=== PATIENT | female | born 1995 | race Caucasian/White ===

== ENCOUNTER 2024-07-14 19:00 | Inpatient (IN) | payer OTHER ==
[~2024-07-14 19:00] MED LIST: Bupivacaine 0.25% HCL 30 ML VIAL ONE; Bupivacaine HCl 0.5%/Epinephrine 1:200,000/PF 30 ml Vial ONE
[2024-07-14] MEDS ORDERED: Lidocaine 1% (PF) 30 ML VIAL SC PRN (19:54)
[2024-07-14] MEDS ORDERED: HYDROcodone/Acetaminophen 5/325 mg Tablet PO PRN ×2 (19:54)
[2024-07-14] MEDS ORDERED: hydrALAZINE 20 MG/ML VIAL SLOW IVP PRN (19:54)
[2024-07-14] MEDS ORDERED: Ondansetron PF 4 MG/2 ML Vial IVP PRN (19:54)
[2024-07-14] MEDS ORDERED: Tranexamic Acid 1,000 MG/10 ML VIAL IVP PRN (19:54)
[2024-07-14] MEDS ORDERED: Promethazine HCl 25 MG/ML VIAL IM PRN (19:54)
[2024-07-14] MEDS ORDERED: fentaNYL 50 mcg/mL 1 mL Vial SLOW IVP PRN (19:54)
[2024-07-14] MEDS ORDERED: Zolpidem Tartrate 5 MG TAB PO PRN (19:54)
[2024-07-14] MEDS ORDERED: Misoprostol 100 MCG TAB VAG SCH (20:00)
[2024-07-14 21:06] VITALS: BMI 41.1
[2024-07-14 22:05] LABS: Hematocrit 35.6 % (34.9-44.5); Hemoglobin 11.1 g/dL (12.0-15.5); Mean Corpuscular HGB CONC 31.2 g/dL (32.0-36.0); Mean Corpuscular Hemoglobin 25.2 pg (27.0-33.0); Mean Corpuscular Volume 80.7 fL (81.6-98.3); Mean Platelet Volume 10.3 fL (7.4-10.4); Platelet Count 327 10x3/uL (150-450); RBC Distribution Width 15.3 % (11.5-14.5); Red Blood Cell (RBC) Count 4.41 10x6/uL (3.90-5.03); White Blood Cell (WBC) Count 14.6 10x3/uL (3.5-10.5)
[2024-07-14] MEDS: Misoprostol 100 MCG TAB VAG SCH (22:19)
[2024-07-14 22:32] LABS: HBsAg Index 0.18 S/CO (0-0.99); Hep B Surf Ag - L&D Non-Reactive S/CO (NonReactive); Syphilis Antibody Nonreactive (Nonreactive); Syphilis Antibody Index 0.04 S/CO (<1.00 Non-Reactive)
[2024-07-15] MEDS: Oxytocin 30 units/NS 500 ML 500 ML IV SCH ×2 (02:01→22:00)
[2024-07-15] MEDS ORDERED: Promethazine HCl 25 MG/ML VIAL IM PRN (16:53)
[2024-07-15] MEDS ORDERED: Acetaminophen 325 MG TAB PO PRN (16:53)
[2024-07-15] MEDS ORDERED: ePHEDrine Sulfate 50 MG/10 ML VIAL SLOW IVP PRN (16:53)
[2024-07-15] MEDS ORDERED: Naloxone HCl 0.4 mg/ml Vial IVP PRN ×2 (16:53)
[2024-07-15] MEDS ORDERED: Moisturizing Cream (Eucerin) 113 GM JAR TOP PRN (16:53)
[2024-07-15] MEDS ORDERED: Lactated Ringer's 500 ML IV PRN (16:53)
[2024-07-15] MEDS ORDERED: diphenhydrAMINE 50 MG/ML VIAL IVP PRN (16:53)
[2024-07-15] MEDS ORDERED: Communication Order-Pharmacy FS SCH (17:00)
[2024-07-15] MEDS ORDERED: fentaNYL 2 mcg/Ropivacaine 0.2% Epidural 100 ML CADD EPIDURAL SCH (17:00)
[2024-07-15] MEDS: Ondansetron PF 4 MG/2 ML Vial IVP PRN (18:58)
[2024-07-15] MEDS: Lactated Ringer's 1,000 ML IV SCH (19:26)
[2024-07-15] MEDS: fentaNYL/Ropivacaine Epidural 100 ML ONE (19:28)
[2024-07-15] MEDS: Misoprostol 200 MCG TAB PR PRN (21:44)
[2024-07-15] MEDS: Ibuprofen 800 MG TAB PO PRN (22:00)
[2024-07-15] MEDS: Methylergonovine 0.2 MG/ML VIAL IM PRN (23:02)
[2024-07-16] MEDS ORDERED: HYDROcodone/Acetaminophen 5/325 mg Tablet PO PRN ×2 (00:43)
[2024-07-16] MEDS ORDERED: Methylergonovine 0.2 MG/ML VIAL IM PRN (00:43)
[2024-07-16] MEDS ORDERED: Benzocaine-Menthol 82.5 ML CAN TOP PRN (00:43)
[2024-07-16] MEDS ORDERED: Lanolin Ointment 7 GM TUBE TOP PRN (00:43)
[2024-07-16] MEDS ORDERED: Milk Of Magnesia 30 ML UDCUP PO PRN (00:43)
[2024-07-16] MEDS ORDERED: Zolpidem Tartrate 5 MG TAB PO PRN (00:43)
[2024-07-16] MEDS ORDERED: Bisacodyl 10 MG SUPP PR PRN (00:43)
[2024-07-16] MEDS ORDERED: Misoprostol 200 MCG TAB VAG PRN (00:43)
[2024-07-16] MEDS ORDERED: hydrALAZINE 20 MG/ML VIAL SLOW IVP PRN (00:43)
[2024-07-16] MEDS ORDERED: Ondansetron PF 4 MG/2 ML Vial IVP PRN (00:43)
[2024-07-16] MEDS ORDERED: Oxytocin 30 units/NS 500 ML 500 ML IV SCH (00:43)
[2024-07-16] MEDS: Boostrix 0.5 ML (Tdap) VIAL (>/=7 yrs of age) IM ONE (04:56)
[2024-07-16] MEDS: Ibuprofen 800 MG TAB PO SCH (05:29)
[2024-07-16 08:14] LABS: Hematocrit 29.1 % (34.9-44.5); Hemoglobin 9.1 g/dL (12.0-15.5); Mean Corpuscular HGB CONC 31.3 g/dL (32.0-36.0); Mean Corpuscular Hemoglobin 25.3 pg (27.0-33.0); Mean Corpuscular Volume 80.8 fL (81.6-98.3); Mean Platelet Volume 10.1 fL (7.4-10.4); Platelet Count 254 10x3/uL (150-450); RBC Distribution Width 15.4 % (11.5-14.5); White Blood Cell (WBC) Count 21.4 10x3/uL (3.5-10.5)
[2024-07-16] MEDS: Ferrous Sulfate 325 MG TAB PO SCH (09:48)
[2024-07-16] MEDS: Prenatal Vitamin 1 TAB PO SCH (09:48)
[2024-07-16] MEDS: Docusate 100 MG CAP PO SCH (09:48)
[2024-07-16 20:07] VITALS: BP 131/80; TEMP 99.4
== END 2024-07-16 23:10 | disposition home or self-care (01) | DRG 807 ==
LOC: CSHLD 20:06 → CSHPP 07-16 00:34
PROVIDERS: ADMIT Obstetrics & Gynecology; ATTEND Obstetrics & Gynecology
PROC: 10E0XZZ Delivery of Products of Conception, External Approach (ICD-10-PCS; principal; 2024-07-15)
PROC: 0UQMXZZ Repair Vulva, External Approach (ICD-10-PCS; 2024-07-15)
DX: O80 Encounter for full-term uncomplicated delivery (principal); Z37.0 Single live birth; Z3A.39 39 weeks gestation of pregnancy; O70.0 First degree perineal laceration during delivery
CPT/HCPCS: 36415; 85027; 86780; 86850; 86900; 86901; 87340; J0665; J2210; J2405; J2590

== ENCOUNTER 2024-08-06 15:32 | Emergency (ER) | payer OTHER ==
[2024-08-06 16:46] LABS: #Basophils 0.07 10x3/uL (0.0-0.2); #Eosinophils 0.36 10x3/uL (0.0-0.5); #Monocytes 0.48 10x3/uL (0.0-1.1); #Neutrophils 3.35 10x3/uL (1.5-8.4); %Basophils 1.1 % (0.0-2.0); %Eosinophils 5.8 % (0.0-6.0); %Monocytes 7.8 % (0.0-10.0); %Neutrophils 54.1 % (40.0-75.0); Hematocrit 34.5 % (34.9-44.5); Hemoglobin 10.9 g/dL (12.0-15.5); Mean Corpuscular HGB CONC 31.6 g/dL (32.0-36.0); Mean Corpuscular Hemoglobin 25.2 pg (27.0-33.0); Mean Corpuscular Volume 79.9 fL (81.6-98.3); Mean Platelet Volume 9.7 fL (7.4-10.4); Platelet Count 432 10x3/uL (150-450); Red Blood Cell (RBC) Count 4.32 10x6/uL (3.90-5.03); White Blood Cell (WBC) Count 6.19 10x3/uL (3.5-10.5)
[2024-08-06 17:08] LABS: ALT (SGPT) 28 U/L (8-55); AST (SGOT) 17 U/L (5-34); Albumin 3.7 g/dL (3.5-5.0); Alkaline Phosphatase 115 U/L (40-110); Anion Gap 12 mmol/L (10-20); BUN (Urea Nitrogen) 12 mg/dL (7.0-18.7); Bilirubin, Total 0.3 mg/dL (0.2-1.2); Calc. Creatinine Clearance 0 mL/min (70-130); Calcium 9.4 mg/dL (7.8-10.44); Carbon Dioxide 23 mmol/L (22-29); Chloride 107 mmol/L (98-107); Estimated GFR 117; Globulin 3.3 g/dL (2.4-3.5); Glucose 93 mg/dL (70-105); Potassium 4.1 mmol/L (3.5-5.1); Sodium 138 mmol/L (136-145)
[2024-08-06 17:13] LABS: Troponin I Less than 0.010 ng/mL (< 0.028)
[2024-08-06 17:45] LABS: Bilirubin Neg (Negative); Blood, Urine 50 (Negative); Glucose, Urine (Dipstick) Normal (Negative); Ketone, Urine Negative (Negative); Leukocyte 100 (Negative); Nitrite Negative (Negative); Protein, Urine (Dipstick) Negative (Neg-Trace); Urobilinogen Normal mg/dL (Less than 2)
[2024-08-06 17:47] LABS: Pregnancy Test - Urine (BHCG) Negative (Negative); Pregu Control Background? CLEAR/WHITE (CLR/WHITE); Pregu Control Bar Appear? YES (CONTROL BAR)
[2024-08-06 17:54] LABS: Clarity Hazy (Clear)
[2024-08-06 18:02] LABS: CAUTI Indications for Culture Alt mental st,lethar
[2024-08-06 18:03] LABS: Transitional Epithelial 0-3 HPF (None Seen)
[2024-08-06 18:05] LABS: Bacteria/HPF 1+ HPF (None Seen)
[2024-08-06 18:06] LABS: Urine Culture Reflex No No
== END 2024-08-06 19:00 | disposition home or self-care (01) ==
LOC: CSHERS 15:32
DX: R51.9 Headache, unspecified (principal); R42 Dizziness and giddiness; R11.0 Nausea
CPT/HCPCS: 36415; 70470; 71045; 80053; 81001; 81025; 84484; 85025; 87086; 93005